=== PATIENT | male | born 1945 | race Caucasian/White ===

== ENCOUNTER 2019-02-09 14:25 | Outpatient (CLI) | payer OTHER ==
--- NOTE | 2019-02-09 15:01 | ULT ---
EXAM: RIGHT LOWER EXTREMITY VENOUS DUPLEX ULTRASOUND INCLUDING COLOR AND SPECTRAL DOPPLER IMAGIN02/09/19 HISTORY: Swelling, edema, and redness for four months. COMPARISON: 11/30/13. FINDINGS: Exam performed from groin to ankle including visualized greater saphenous, common femoral, superficia l femoral, profunda femoral, popliteal, trifurcation, and posterior tibial vein regions. There is pha sic flow at all levels with normal compressibility and normal augmentation. No intraluminal thrombus. There is evidence for lower leg subcutaneous edema. IMPRESSION: Evidence for lower leg subcutaneous edema. No evidence for deep venous thrombosis. POS: OFF
== END 2019-02-09 14:26 | disposition home or self-care (01) ==
LOC: ULT 14:25 → BICULT 14:26
DX: R60.0 Localized edema (principal)

== ENCOUNTER 2022-01-19 12:23 | Inpatient (IN) | payer MEDICARE, OTHER ==
[2022-01-19 13:40] LABS: #Lymphocytes 1.1 thou/uL (1.20-3.40); #Monocytes 0.7 thou/uL (0.11-0.59); #Neutrophils 7.2 thou/uL (1.40-6.50); %Basophils 0.1 % (0.0-1.0); %Eosinophils 0.3 % (0.0-10.0); %Lymphocytes 12.6 % (21.0-51.0); %Monocytes 7.1 % (0.0-10.0); %Neutrophils 79.9 % (42.0-75.0); Hemoglobin 10.9 g/dL (14.0-18.0); Mean Corpuscular HGB CONC 34.4 g/dL (32.0-36.0); Mean Corpuscular Volume 98.9 fL (78.0-98.0); Mean Platelet Volume 7.6 fL (7.4-10.4); Platelet Count 144 thou/uL (130-400); RBC Distribution Width 12.3 % (11.5-14.5); Red Blood Cell (RBC) Count 3.19 mill/uL (4.70-6.10)
[2022-01-19] MEDS ORDERED: Ondansetron PF 4 MG/2 ML Vial ONE (13:45)
[2022-01-19 13:56] LABS: INR-International Normal Ratio 1.4; PTT 27.5 sec (22.9-36.1); Prothrombin Time 17.4 sec (12.0-14.7)
[2022-01-19 13:59] LABS: ALT (SGPT) 13 U/L (8-55); AST (SGOT) 14 U/L (5-34); Albumin 3.2 g/dL (3.4-4.8); Alkaline Phosphatase 47 U/L (40-110); Anion Gap 15 mmol/L (10-20); BUN (Urea Nitrogen) 42 mg/dL (8.4-25.7); Bilirubin, Total 0.9 mg/dL (0.2-1.2); Calc. Creatinine Clearance 0 mL/min (70-130); Calcium 7.8 mg/dL (7.8-10.44); Carbon Dioxide 19 mmol/L (23-31); Chloride 99 mmol/L (98-107); Estimated GFR 94; Globulin 2.3 g/dL (2.4-3.5); Glucose 134 mg/dL (83-110); Protein, Total 5.5 g/dL (5.8-8.1); Sodium 129 mmol/L (136-145)
[2022-01-19] MEDS ORDERED: Acetaminophen 325 MG TAB PO PRN (18:12)
[2022-01-19] MEDS ORDERED: Ondansetron ODT 4 MG TAB PO PRN (18:12)
[2022-01-19] MEDS ORDERED: HYDROcodone/Acetaminophen 5/325 mg Tablet PO PRN (18:12)
[2022-01-19 18:46] LABS: Magnesium 1.5 mg/dL (1.6-2.6)
[2022-01-19] MEDS ORDERED: Magnesium Sulfate 2 GM in Sodium Chloride 0.9% 250 ML 250 ML IVPB SCH (19:00)
[2022-01-19] MEDS ORDERED: Magnesium Sulfate 4 GM in Sodium Chloride 0.9% 250 ML 250 ML IVPB SCH (19:00)
[2022-01-19 19:24] LABS: Troponin I Less than 0.010 ng/mL (< 0.028)
[2022-01-19] MEDS: HYDROcodone/Acetaminophen 5/325 mg Tablet PO PRN (19:53)
[2022-01-19] MEDS: Sodium Chloride 0.9% 1,000 ML IV SCH (19:58)
[2022-01-19] MEDS: Pantoprazole 40 MG VIAL IVP SCH (19:59)
[2022-01-19 20:13] VITALS: BMI 28.9
[2022-01-19] MEDS ORDERED: Melatonin 3 MG TAB PO PRN (20:33)
[2022-01-19 21:03] LABS: Hemoglobin 10.6 g/dL (14.0-18.0)
[2022-01-19 21:24] LABS: Iron 212 ug/dL (65-175); Iron Binding Capacity, Total 215 mcg/dL (261-462)
[2022-01-19 21:28] LABS: Troponin I Less than 0.010 ng/mL (< 0.028)
[2022-01-19 21:48] LABS: Ferritin 246.17 ng/mL (22-322); Thyroid Stimulating Hormone 1.37 uIU/mL (0.35-4.94)
[2022-01-19 23:47] LABS: Bacteria/HPF None Seen HPF (None Seen); Bilirubin Negative (Negative); Blood, Urine Negative (Negative); Clarity Clear (Clear); Glucose, Urine (Dipstick) Normal (Negative); Ketone, Urine Negative (Negative); Leukocyte Negative Leu/uL (Negative); Nitrite Negative (Negative); Protein, Urine (Dipstick) Negative (Neg-Trace); RBC/HPF 0-3 HPF (0-3); Specific Gravity, Urine 1.021 (1.002-1.036); Squamous Epithelial None Seen HPF (0-3); Urobilinogen Normal mg/dL (Less than 2); WBC/HPF 0-3 HPF (0-3)
[2022-01-20] MEDS: HYDROcodone/Acetaminophen 5/325 mg Tablet PO PRN ×3 (00:20→13:06)
[2022-01-20] MEDS ORDERED: hydrALAZINE 20 MG/ML VIAL SLOW IVP PRN (02:17)
[2022-01-20 04:59] LABS: Anion Gap 12 mmol/L (10-20); BUN (Urea Nitrogen) 46 mg/dL (8.4-25.7); Calc. Creatinine Clearance 126 mL/min (70-130); Calcium 7.5 mg/dL (7.8-10.44); Carbon Dioxide 22 mmol/L (23-31); Chloride 102 mmol/L (98-107); Estimated GFR 93; Glucose 101 mg/dL (83-110); Magnesium 1.9 mg/dL (1.6-2.6); Potassium 3.8 mmol/L (3.5-5.1); Sodium 132 mmol/L (136-145)
[2022-01-20 05:06] LABS: #Lymphocytes 1.9 thou/uL (1.20-3.40); #Monocytes 0.8 thou/uL (0.11-0.59); #Neutrophils 3.2 thou/uL (1.40-6.50); %Basophils 0.8 % (0.0-1.0); %Eosinophils 0.4 % (0.0-10.0); %Lymphocytes 31.9 % (21.0-51.0); %Monocytes 13.7 % (0.0-10.0); %Neutrophils 53.2 % (42.0-75.0); Hemoglobin 8.1 g/dL (14.0-18.0); MDiff Complete? YES; Macrocytosis SLIGHT = 6-15 cells (100X) (0-5/hpf); Mean Corpuscular HGB CONC 35.6 g/dL (32.0-36.0); Mean Corpuscular Hemoglobin 35.4 pg (27.0-31.0); Mean Corpuscular Volume 99.5 fL (78.0-98.0); Mean Platelet Volume 7.8 fL (7.4-10.4); Ovalocytes SLIGHT = 2-5 cells (100X) (0-1/hpf); Platelet Count 115 thou/uL (130-400); Platelet Morphology Comment Appears Decreased; RBC Distribution Width 12.3 % (11.5-14.5); Red Blood Cell (RBC) Count 2.27 mill/uL (4.70-6.10); White Blood Cell (WBC) Count 6.1 thou/uL (4.8-10.8)
[2022-01-20 06:01] LABS: SARS-CoV-2 NAA Rapid Test Not Detected (NotDetected)
[2022-01-20] MEDS ORDERED: Ketamine 50 MG/ML (10ML VIAL) ONE (09:28)
[2022-01-20] MEDS ORDERED: PROPOFOL 200 MG/20 ML VIAL ONE (09:41)
[2022-01-20] MEDS ORDERED: hydrALAZINE 20 MG/ML VIAL ONE (10:27)
[2022-01-20] MEDS: Ondansetron PF 4 MG/2 ML Vial IVP PRN (11:18)
[2022-01-20] MEDS: Sodium Chloride 0.9% 1,000 ML IV SCH ×2 (11:18→22:08)
[2022-01-20] MEDS: Pantoprazole 40 MG VIAL IVP SCH ×2 (11:28→21:06)
[2022-01-20] MEDS ORDERED: Promethazine HCl 25 MG in Sodium Chloride 0.9% 50 ML IVPB SCH (12:15)
[2022-01-20] MEDS ORDERED: Carvedilol 25 MG TAB PO SCH (21:00)
[2022-01-21] MEDS: HYDROcodone/Acetaminophen 5/325 mg Tablet PO PRN ×4 (02:07→21:27)
[2022-01-21 02:18] LABS: Hemoglobin 7.7 g/dL (14.0-18.0)
[2022-01-21 05:18] LABS: #Eosinphils 0.1 thou/uL (0.0-0.7); #Lymphocytes 1.7 thou/uL (1.20-3.40); #Monocytes 0.6 thou/uL (0.11-0.59); #Neutrophils 4.4 thou/uL (1.40-6.50); %Basophils 0.6 % (0.0-1.0); %Eosinophils 0.9 % (0.0-10.0); %Lymphocytes 24.9 % (21.0-51.0); %Monocytes 8.9 % (0.0-10.0); %Neutrophils 64.8 % (42.0-75.0); Hemoglobin 7.7 g/dL (14.0-18.0); Mean Corpuscular HGB CONC 35.6 g/dL (32.0-36.0); Mean Corpuscular Hemoglobin 35.7 pg (27.0-31.0); Mean Platelet Volume 8.1 fL (7.4-10.4); Platelet Count 106 thou/uL (130-400); RBC Distribution Width 13.1 % (11.5-14.5); Red Blood Cell (RBC) Count 2.15 mill/uL (4.70-6.10); White Blood Cell (WBC) Count 6.7 thou/uL (4.8-10.8)
[2022-01-21 05:30] LABS: Anion Gap 14 mmol/L (10-20); BUN (Urea Nitrogen) 24 mg/dL (8.4-25.7); Calc. Creatinine Clearance 141 mL/min (70-130); Calcium 7.5 mg/dL (7.8-10.44); Carbon Dioxide 19 mmol/L (23-31); Chloride 109 mmol/L (98-107); Estimated GFR 96; Glucose 92 mg/dL (83-110); Potassium 3.8 mmol/L (3.5-5.1); Sodium 138 mmol/L (136-145)
[2022-01-21] MEDS: Carvedilol 6.25 MG TAB PO SCH ×2 (09:27→21:26)
[2022-01-21] MEDS: Pantoprazole 40 MG VIAL IVP SCH ×2 (09:28→21:27)
[2022-01-21] MEDS: Sodium Chloride 0.9% 1,000 ML IV SCH (12:49)
[2022-01-21] MEDS: Vancomycin 25 MG/ML Oral SOLN PO SCH ×2 (18:49→23:59)
[2022-01-21 21:07] LABS: Campy jejuni + coli by PCR Negative (Negative); STEC Shiga Toxin 1+2 Negative (Negative); Salmonella spp. by PCR Negative (Negative); Shigella spp + EIEC by PCR Negative (Negative)
[2022-01-22] MEDS: HYDROcodone/Acetaminophen 5/325 mg Tablet PO PRN ×5 (01:24→21:19)
[2022-01-22 04:37] LABS: Hemoglobin 6.8 g/dL (14.0-18.0); Platelet Count 94 thou/uL (130-400)
[2022-01-22] MEDS: Vancomycin 25 MG/ML Oral SOLN PO SCH ×4 (05:54→23:25)
[2022-01-22] MEDS: Carvedilol 6.25 MG TAB PO SCH (09:31)
[2022-01-22] MEDS: Ondansetron PF 4 MG/2 ML Vial IVP PRN (09:31)
[2022-01-22] MEDS: Saccharomyces boulardii 250 MG CAP PO SCH (09:31)
[2022-01-22] MEDS: Pantoprazole 40 MG VIAL IVP SCH ×2 (09:31→21:12)
[2022-01-22] MEDS: Sodium Chloride 0.9% 1,000 ML IV SCH ×2 (17:30)
[2022-01-22 18:46] LABS: Hemoglobin 7.9 g/dL (14.0-18.0); Platelet Count 105 thou/uL (130-400)
[2022-01-22] MEDS: Lisinopril 5 MG TAB PO SCH (21:12)
[2022-01-23] MEDS: HYDROcodone/Acetaminophen 5/325 mg Tablet PO PRN ×5 (01:20→21:01)
[2022-01-23 05:08] LABS: Hemoglobin 7.8 g/dL (14.0-18.0); Platelet Count 108 thou/uL (130-400)
[2022-01-23 05:16] LABS: Cardiac Risk 2.5 (Less than 4.5)
[2022-01-23] MEDS: Sodium Chloride 0.9% 1,000 ML IV SCH ×2 (05:39→16:54)
[2022-01-23] MEDS: Vancomycin 25 MG/ML Oral SOLN PO SCH ×4 (05:39→23:16)
[2022-01-23] MEDS: Saccharomyces boulardii 250 MG CAP PO SCH (09:14)
[2022-01-23] MEDS: Carvedilol 3.125 MG TAB PO SCH ×2 (09:14→16:54)
[2022-01-23] MEDS: Pantoprazole 40 MG VIAL IVP SCH ×2 (09:18→21:01)
[2022-01-23] MEDS: Lisinopril 5 MG TAB PO SCH ×2 (09:18→21:00)
[2022-01-24] MEDS: HYDROcodone/Acetaminophen 5/325 mg Tablet PO PRN ×4 (01:15→13:37)
[2022-01-24 04:39] LABS: Hemoglobin 8.1 g/dL (14.0-18.0); Platelet Count 127 thou/uL (130-400)
[2022-01-24] MEDS: Vancomycin 25 MG/ML Oral SOLN PO SCH ×2 (05:17→12:15)
[2022-01-24] MEDS: Sodium Chloride 0.9% 1,000 ML IV SCH (06:11)
[2022-01-24] MEDS: Carvedilol 3.125 MG TAB PO SCH (08:56)
[2022-01-24] MEDS: Lisinopril 5 MG TAB PO SCH (08:56)
[2022-01-24] MEDS: Saccharomyces boulardii 250 MG CAP PO SCH (08:57)
[2022-01-24] MEDS: Pantoprazole 40 MG VIAL IVP SCH (08:57)
[2022-01-24] MEDS ORDERED: Furosemide 20 MG/2 ML VIAL SLOW IVP SCH (09:45)
[2022-01-24 11:14] VITALS: BP 158/77; TEMP 97.5
== END 2022-01-24 15:30 | disposition home or self-care (01) | DRG 378 ==
LOC: ERS 12:23 → 2NO 17:50
PROVIDERS: ADMIT Internal Medicine; ATTEND Family Medicine
PROC: 0W3P8ZZ Control Bleeding in Gastrointestinal Tract, Via Natural or Artificial Opening Endoscopic (ICD-10-PCS; principal; 2022-01-20)
PROC: 30233H1 Transfusion of Nonautologous Whole Blood into Peripheral Vein, Percutaneous Approach (ICD-10-PCS; 2022-01-20)
DX: K26.4 Chronic or unspecified duodenal ulcer with hemorrhage (principal); A04.72 Enterocolitis due to Clostridium difficile, not specified as recurrent; D62 Acute posthemorrhagic anemia; E87.1 Hypo-osmolality and hyponatremia; Z20.822 Contact with and (suspected) exposure to COVID-19; I10 Essential (primary) hypertension; M06.9 Rheumatoid arthritis, unspecified; R00.1 Bradycardia, unspecified; M10.9 Gout, unspecified; I25.10 Atherosclerotic heart disease of native coronary artery without angina pectoris; I48.91 Unspecified atrial fibrillation; K29.00 Acute gastritis without bleeding; E83.42 Hypomagnesemia; K29.80 Duodenitis without bleeding; Z95.5 Presence of coronary angioplasty implant and graft; Z88.6 Allergy status to analgesic agent; I25.2 Old myocardial infarction; Z79.899 Other long term (current) drug therapy; Z88.8 Allergy status to other drugs, medicaments and biological substances
CPT/HCPCS: 36415; 36430; 71045; 74022; 80048; 80053; 80061; 81001; 81256; 82550; 82607; 82728; 83540; 83550; 83735; 83880; 83935; 84300; 84443; 84484; 85014; 85018; 85025; 85049; 85610; 85730; 86850; 86900; 86901; 87324; 87338; 87449; 87505; 88305; 93005; 93306; 96374; C1776; C9113; J0360; J1940; J2405; J2550; J2704; J3475; J7050; P9016; U0002; U0003; U0005